=== PATIENT | female | born 1955 | race Caucasian/White ===

== ENCOUNTER 2019-04-23 03:19 | Observation (INO) ==
[2019-04-23] MEDS ORDERED: PHENERGAN IM ONE (05:35)
[2019-04-23] MEDS ORDERED: PHENERGAN IV ONE (05:44)
[2019-04-23] MEDS ORDERED: SODIUM CHLORIDE 0.9% INJ ONE ×2 (05:44→07:08)
[2019-04-23 06:32] LABS: BASO# 0.02 X1000 (0.0-0.2); BASO% 0.3 % (0.0-0.8); EOS# 0.29 X1000 (0.0-0.7); EOS% 4.2 % (0.0-10.0); HEMATOCRIT 41.7 % (37.0-47.0); HEMOGLOBIN 14.5 g/dL (12.0-16.0); IMM GRAN# 0.01 X1000 (0.0-0.04); IMM GRAN% 0.1 % (0.0-0.5); LYMPH# 1.63 X1000 (1.2-3.4); LYMPH% 23.7 % (20.5-51.1); MCH 27.1 PG (27-31); MCHC 34.8 g/dL (33-37); MCV 77.9 FL (81-99); MONO# 0.78 X1000 (0.11-0.59); MONO% 11.3 % (1.7-9.3); MPV 11.9 FL (7.4-10.4); NEUT# 4.16 X1000 (1.4-6.5); NEUT% 60.4 % (42.2-75.2); PLT 192 X1000 (130-400); RBC 5.35 XMIL (4.2-5.4); RDW 13.9 % (11.5-14.5); WBC 6.89 X1000 (4.8-10.8)
[2019-04-23 06:43] LABS: ALBUMIN 4.4 g/dL (3.5-5.0); CALCIUM 9.2 mg/dL (8.8-10.2); CREATININE 1.1 mg/dL (0.5-0.9); POTASSIUM 3.8 mmol/L (3.5-5.1); TOTAL BILIRUBIN 1.3 mg/dL (0.20-1.00); TOTAL PROTEIN 7.1 g/dL (6.3-8.3)
--- NOTE | 2019-04-23 06:59 | PROVIDER DOCUMENTATION ---
HPI-Abdominal Pain/GI Problem - General Chief Complaint: N/V/D Stated Complaint: N/V/D Time Seen by Provider: 04/23/19 05:35 Allergies/Adverse Reactions: Patient Allergies Allergy/AdvReac Type Severity Reaction Status Date / Time Sulfa (Sulfonamide Allergy VOMITING Verified 04/23/19 03:33 Antibiotics) meperidine [From Demerol] AdvReac VOMITING Verified 04/23/19 03:33 metoclopramide [From Reglan] AdvReac Unknown Verified 04/23/19 03:33 Review of Systems - Adult - REVIEW OF SYSTEMS - ADULT Constitutional: reports: no symptoms reported Eyes: reports: no symptoms reported Ears, Nose, Mouth & Throat: reports: no symptoms reported Cardiovascular: reports: no symptoms reported Respiratory: reports: no symptoms reported Gastrointestinal: reports: abdominal pain, nausea, poor appetite, vomiting Genitourinary: reports: no symptoms reported Musculoskeletal: reports: no symptoms reported, back pain Integumentary: reports: no symptoms reported Neurological: reports: no symptoms reported Psychiatric: reports: no symptoms reported Hematologic/Lymphatic: reports: no symptoms reported Allergic/Immunologic: reports: no symptoms reported Past History - Adult - PAST MEDICAL HISTORY-ADULT Review of Records: reports: Medications Reviewed, Social history reviewed & non- contributory. Major Childhood Illnesses: reports: denies history Cardiovascular: reports: HTN Respiratory: reports: denies history Gastrointestinal: reports: cholelithiasis, diverticulosis Genitourinary: reports: denies history Musculoskeletal: reports: denies history Psychiatric: reports: denies history Endocrine/Immune: reports: denies history - PRIOR SURGERIES/PROCEDURES Surgical/Procedure History: reports: colonoscopy, cholecystectomy - FAMILY HISTORY Family History: reviewed, not pertinent - SOCIAL HISTORY Smoking: denies Substance Use: none/never Alcohol Use Frequency: never Physical Exam-General - PHYSICAL EXAM-ADULT Initial Vital Signs Reviewed: Yes - CONSTITUTIONAL General Appearance: appears well, moderate distress - EYES Eyes: PERRL/EOMI - HEAD, EARS, NOSE, MOUTH & THROAT HENMT: normocephalic/atraumatic, moist mucous membranes - NECK Neck: non-tender, full range of motion, supple - RESPIRATORY Respiratory: chest non-tender, lungs clear, normal breath sounds - CARDIOVASCULAR Cardiovascular: normal peripheral pulses, regular rate, rhythm - GASTROINTESTINAL (ABDOMEN) Abdominal Exam: normal bowel sounds, non tender, soft, tenderness - LYMPHATIC Lymphatic: no adenopathy - MUSCULOSKELETAL Back Exam: normal inspection, no CVA tenderness Extremity: normal range of motion, non-tender - SKIN Integumentary: normal color, normal turgor - NEUROLOGIC Neurologic: heel seam rubber II-XII nml as tested, grossly normal - PSYCHIATRIC Psych/Mental Status: oriented x 3 Progress - PLAN OF CARE/RESULTS Progress/Plan/Lab Results: Vital Signs - 8 hr 04/23/19 03:26 Temperature 98.9 F Pulse Rate 77 Respiratory Rate 16 Blood Pressure 175/95 O2 Sat by Pulse Oximetry 99 Laboratory Results - last 24 hr 04/23/19 04/23/19 04/23/19 05:20 05:20 05:20 WBC 6.89 RBC 5.35 Hgb 14.5 Hct 41.7 MCV 77.9 L MCH 27.1 MCHC 34.8 RDW Std Deviation 13.9 Plt Count 192 MPV 11.9 H Immature Gran % (Auto) 0.1 Neut % (Auto) 60.4 Lymph % (Auto) 23.7 [place] % (Auto) 11.3 H Eos % (Auto) 4.2 Baso % (Auto) 0.3 Immature Gran # (Auto) 0.01 Neut # (Auto) 4.16 Lymph # (Auto) 1.63 [place] # (Auto) 0.78 H Eos # (Auto) 0.29 Baso # (Auto) 0.02 Sodium 139 Potassium 3.8 Chloride 102 Carbon Dioxide 27 Anion Gap 10 BUN 12 Creatinine 1.1 H Estimated GFR/1.73 m2 50 BUN/Creatinine Ratio 11 Glucose 107 H Calculated Osmolality 278 Calcium 9.2 Total Bilirubin 1.30 H AST 84 H ALT 96 H Alkaline Phosphatase 162 H Total Protein 7.1 Albumin 4.4 Globulin 3.0 Albumin/Globulin Ratio 2.0 Amylase 32 Lipase 25 Orders Category Date Time Status ABDOMEN FLAT/UPRIGHT [RAD] Stat Exams 04/23/19 06:50 Ordered CHEST-2 VIEWS [RAD] Stat Exams 04/23/19 06:50 Ordered AMYLASE [CHEM] Stat Lab 04/23/19 05:20 Completed CBC WITH ELECTRONIC DIFF [HEME] Stat Lab 04/23/19 05:20 Completed COMPREHENSIVE METABOLIC PANEL [CHEM] Stat Lab 04/23/19 05:20 Completed LIPASE [CHEM] Stat Lab 04/23/19 05:20 Completed Promethazine [Phenergan] Med 04/23/19 05:44 Discontinued 25 mg IV NOW ONE Sodium Chloride 0.9% Med 04/23/19 05:44 Discontinued 10 ml INJ NOW ONE Result Diagrams: 04/23/19 05:20 04/23/19 05:20 - REASSESSMENT Reassessment #1 Time Reassessed: 08:06 Status: unchanged (again with nausea/vomitng small amount. X-ray consistent with ileus. admission discussed with dr Vaca.-[facility]) - CONSULTS/PCP/HOSPITALIST Notification #1 *Consult/PCP/Hospitalist*: DR VACA Time Discussed: 08:08 Consult Disposition: Will see in ED, Admit Departure - Departure Date of Disposition Decision: 04/23/19 Time of Disposition Decision: 08:08 DIAGNOSIS: Gastroenteritis, Ileus, Elevated liver enzymes Disposition: ADMITTED INPATIENT 09 Certified Medical Emergency: Emergent Condition: Stable Referrals and Follow-Ups: Winter Gannon MD [Primary Care Provider] - - Critical Care Note This patient required my direct & personal management of CC.: No Attestation - Physician/ DASIA Attestation Patient care was provided by Advanced Practice Provider:: No The physician spent face to face time with patient:: Yes Advanced Practice Provider documentation review:: Supervising physician onsite and consulted in the evaluation and care of this patient. The physician did have a face to face encounter with the patient.
[2019-04-23] MEDS ORDERED: BENTYL LIQUID PO ONE (07:08)
[2019-04-23] MEDS ORDERED: PROTONIX IV ONE (07:08)
[2019-04-23] MEDS ORDERED: NS 500 ML IV ONE (07:08)
--- NOTE | 2019-04-23 07:41 | Diag Imaging Result Doc PS360 ---
EXAM: CHEST-2 VIEWS HISTORY: cough TECHNIQUE: Chest two views COMPARISON: None. FINDINGS: The lungs are well expanded. The heart is not enlarged. The vessels are not distended. There are no infiltrates. No pleural effusions. IMPRESSION: No pneumonia. Electronically signed by Carl Garcia 04/23/2019 7:38 AM
--- NOTE | 2019-04-23 07:42 | Diag Imaging Result Doc PS360 ---
EXAM: ABDOMEN FLAT/UPRIGHT HISTORY: nausea diarrhea TECHNIQUE: Flat and upright, two views COMPARISON: None. FINDINGS: No free air beneath the diaphragm. The gallbladder has been removed. Air-fluid levels in the right abdomen in nondistended bowel loops. No organomegaly. No abnormal abdominal calcifications. IMPRESSION: There is likely an ileus. Follow-up films recommended. Electronically signed by Carl Garcia 04/23/2019 7:39 AM
[2019-04-23] MEDS ORDERED: ZOFRAN IV PRN (08:28)
[2019-04-23] MEDS ORDERED: TYLENOL PO PRN (08:28)
[2019-04-23] MEDS ORDERED: DEMEROL IV PRN (10:45)
[2019-04-23] MEDS ORDERED: PHENERGAN IV PRN (10:45)
[2019-04-23] MEDS ORDERED: SODIUM CHLORIDE 0.9% INJ PRN (10:45)
[2019-04-23] MEDS: NS 1,000 ML IV SCH ×2 (10:47→21:31)
[2019-04-23] MEDS ORDERED: MORPHINE IV PRN (10:51)
--- NOTE | 2019-04-23 11:10 | HISTORY AND PHYSICAL ---
PRIMARY CARE PHYSICIAN: Dr. Gannon. CHIEF COMPLAINT: Nausea, vomiting, and diarrhea that has been present since last Saturday, now with sharp abdominal pain that is diffuse. HISTORY OF PRESENTING ILLNESS: This is a 63-year-old female who presents to [facility] ER with complaints of nausea, vomiting, and diarrhea that have been present since last Saturday. States she has had no appetite for the last couple of days. Began having sharp abdominal pain, so she presented to the emergency room. Her workup showed a total bilirubin of 1.30, an AST of 84, ALT 96, alkaline phosphatase 162. We did an abdominal x-ray that showed likely an ileus, with followup films recommended. Her chest x-ray showed no pneumonia, so she was admitted for further evaluation and treatment. PAST MEDICAL HISTORY: Hypertension, sleep apnea with CPAP usage. PAST SURGICAL HISTORY: Cholecystectomy, hysterectomy, back surgery, right leg melchor placement, pituitary tumor removal, and a sinus surgery. FAMILY HISTORY: Reviewed and noncontributory. SOCIAL HISTORY: She currently lives with family. Denies any tobacco, alcohol, or illicit drug use. ALLERGIES: Sulfa, meperidine, and metoclopramide. HOME MEDICATIONS: She takes bupropion 200 mg p.o. daily, Coreg 12.5 mg p.o. b.i.d., lisinopril 10 mg p.o. daily, lorazepam 0.5 mg p.o. at bedtime, AcipHex 20 mg p.o. daily, and zolpidem 5 mg p.o. at bedtime. IMAGING AND LABORATORY DATA: Laboratory data showed a white blood cell count of 6.89, hemoglobin 14.5, hematocrit 41.7, platelets 192,000. Sodium 139, potassium 3.8, chloride 102, CO2 of 27, BUN of 12, creatinine 1.1, glucose 107. Total bilirubin of 1.30, AST of 84, ALT 96, alkaline phosphatase of 162, amylase of 32, lipase of 25. Abdominal x-ray showed that there is likely an ileus, with followup films recommended, and chest x-ray showed no pneumonia. REVIEW OF SYSTEMS: She denied any fever, chills, blurred vision, dizziness, chest pain, coughing, shortness of breath. She was positive for generalized abdominal pain with nausea, vomiting, and diarrhea. Denied any burning or hurting with urination. PHYSICAL EXAMINATION: VITAL SIGNS: On arrival, she had a temperature of 98.9 degrees, pulse 77, respirations 16, blood pressure 175/95, saturating 99% on room air. GENERAL: This is a 63-year-old female who is lying in the bed and answers questions appropriately. HEENT: Normocephalic, atraumatic. Normal ENT inspection. Oropharynx and nares are clear. Eyes: Pupils are equal, round, and reactive to light and accommodation. Extraocular movements are intact. NECK: Normal inspection. Normal range of motion. LUNGS: Clear to auscultation bilaterally with equal lung expansion and chest wall movement. HEART: Regular rate and rhythm. No murmurs, rubs, or gallops. ABDOMEN: Soft. There was some mild tenderness to palpation throughout her abdomen. Bowel sounds are present x4 quadrants. MUSCULOSKELETAL: She has 5/5 strength x4 extremities. NEUROLOGICAL: Cranial nerves II through XII appear grossly intact. ASSESSMENT: 1. Ileus. 2. Gastroenteritis. 3. Elevated liver function tests. 4. Hypertension, history of. PLAN: She was admitted to the medical unit. Placed on telemetry, full liquid diet. Will check a Clostridium difficile stool. Placed on normal saline at 75 mL an hour. The patient states the Zofran is not helping her nausea, so will change her to Phenergan 25 mg IV every 4 hours p.r.n. I will give her morphine 2 mg IV every 4 hours p.r.n. She is allergic to Demerol. Will begin her home medications tonight, and will recheck a CBC, CMP, and a magnesium level in the a.m. Further orders after seen by attending. Dictated by ANTOINETTE Jaquez for Yossi Vaca MD cc: ANTOINETTE Jaquez MD Kathy J. Sparacino, MD
[2019-04-23] MEDS ORDERED: PNEUMOVAX 23 IM ONE (12:51)
[2019-04-23 17:48] LABS: CLARITY CLEAR (CLEAR); COLOR YELLOW
[2019-04-23 17:49] LABS: BILIRUBIN URINE NEGATIVE (NEGATIVE); BLOOD URINE NEGATIVE (NEGATIVE); GLUCOSE URINE NEGATIVE (NEGATIVE); KETONE URINE NEGATIVE (NEGATIVE); LEUKOCYTES URINE 1+ (NEGATIVE); NITRITE URINE NEGATIVE (NEGATIVE); PROTEIN URINE NEGATIVE (NEGATIVE); SP GRAVITY URINE 1.005; UROBILINOGEN URINE 1 mg/dL
[2019-04-23 17:50] LABS: URINE EPITHELIAL CELLS <10 /HPF (<10); URINE RBC <10 /HPF (<10)
[2019-04-23 17:51] LABS: URINE BACTERIA 1+ /HFP; URINE SOURCE CLEAN CATCH; URINE YEAST PRESENT /HPF
[2019-04-23] MEDS ORDERED: IMODIUM PO ONE (18:50)
--- NOTE | 2019-04-23 18:53 | HISTORY AND PHYSICAL ---
ADDENDUM: Patient admitted to the hospital for nausea, vomiting, diarrhea. Thankfully her C. difficile so far has been negative. We are going to admit her to the hospital. IV fluids, try to control her diarrhea, follow her blood pressures. She does have an elevated bilirubin at 1.3. We will continue to follow. cc: Yossi Vaca MD
[2019-04-23] MEDS ORDERED: ATIVAN PO SCH (21:00)
[2019-04-23] MEDS ORDERED: AMBIEN PO SCH (21:00)
[2019-04-23] MEDS: COREG PO SCH ×2 (21:30→21:31)
[2019-04-23] MEDS: IMODIUM PO PRN (21:31)
[2019-04-24] MEDS: IMODIUM PO PRN ×2 (01:31→15:46)
[2019-04-24 06:38] LABS: HEMATOCRIT 39.7 % (37.0-47.0); HEMOGLOBIN 13.4 g/dL (12.0-16.0); MCH 26.5 PG (27-31); MCHC 33.8 g/dL (33-37); MCV 78.6 FL (81-99); MPV 11.5 FL (7.4-10.4); RBC 5.05 XMIL (4.2-5.4); RDW 14.3 % (11.5-14.5); WBC 7.84 X1000 (4.8-10.8)
[2019-04-24] MEDS ORDERED: PRILOSEC PO SCH (07:00)
[2019-04-24 07:01] LABS: AGAP 12; ALBUMIN 3.8 g/dL (3.5-5.0); ALKALINE PHOSPHATASE 139 U/L (32-104); BUN 10 mg/dL (8-22); CALCIUM 8.6 mg/dL (8.8-10.2); CHLORIDE 107 mmol/L (98-107); COSMO 280; CREATININE 0.9 mg/dL (0.5-0.9); ESTIMATED GFR > 60; GLUCOSE 94 mg/dL (70-104); GOT 47 U/L (10-30); GPT 74 U/L (10-36); MAGNESIUM 1.8 mg/dL (1.5-2.7); POTASSIUM 3.4 mmol/L (3.5-5.1); SODIUM 141 mmol/L (136-145); TCO2 22 mmol/L (25-35); TOTAL PROTEIN 6.3 g/dL (6.3-8.3)
[2019-04-24 07:38] VITALS: BP 129/72
[2019-04-24] MEDS ORDERED: WELLBUTRIN PO SCH (09:00)
[2019-04-24] MEDS ORDERED: PRINIVIL PO SCH (09:00)
[2019-04-24] MEDS: COREG PO SCH (09:16)
[2019-04-24] MEDS ORDERED: AMBIEN PO SCH (09:54)
--- NOTE | 2019-04-24 14:07 | Diag Imaging Result Doc PS360 ---
EXAM: CT ABD/PELVIS W/PO AND IV CON HISTORY: ileus,gastroenteritis TECHNIQUE: CT abdomen and pelvis with oral and intravenous contrast COMPARISON: None. FINDINGS: The gallbladder has been removed. There is fatty infiltration of the liver. Normal spleen, pancreas, and adrenal glands. There is scarring to the kidneys. No hydronephrosis. No aortic aneurysm. Moderate atherosclerosis. No bowel obstruction or ileus. There are scattered colonic diverticula. No inflammation about the appendix. No abscess. No ascites. Urinary bladder is moderately distended. The uterus has been removed. No pelvic mass. IMPRESSION: 1.Cholecystectomy 2.There is fatty infiltration of the liver 3.Renal scarring 4.Colonic diverticulosis 5.Hysterectomy This exam was performed using automated exposure control, adjustment of mA or kV according to patient size, and/or use of iterative reconstruction technique. Electronically signed by Carl Garcia 04/24/2019 2:06 PM
--- NOTE | 2019-04-24 14:18 | Diag Imaging Result Doc PS360 ---
EXAM: ABDOMEN FLAT/UPRIGHT HISTORY: ileus TECHNIQUE: Flat and upright, two views COMPARISON: 04/23/2019 FINDINGS: No free air beneath the diaphragm. The gallbladder has been removed. Intravenous contrast fills the ureters and urinary bladder. Air and fluid fill nondistended loops of small bowel and colon. IMPRESSION: No definite abnormality Electronically signed by Carl Garcia 04/24/2019 2:17 PM
[2019-04-24] MEDS: NS 1,000 ML IV SCH (15:35)
--- NOTE | 2019-04-25 02:58 | DISCHARGE SUMMARY ---
ADMISSION DATE: 04/23/2019 DISCHARGE DATE: 04/24/2019 ADDENDUM: Patient seen and examined by myself. Full note dictated and discussed with nurse practitioner. On discharge, patient is awake, alert. She tolerated a GI soft diet. She is still having some mild diffuse abdominal pain but overall is improved. We will discharge her home. She will follow up outpatient as needed. cc: Yossi Vaca MD
--- NOTE | 2019-04-25 18:49 | DISCHARGE SUMMARY ---
ADMISSION DATE: 04/23/2019 DISCHARGE DATE: 04/24/2019 PRIMARY CARE PHYSICIAN: Dr. Gannon. ADMISSION DIAGNOSES: 1. Ileus. 2. Gastroenteritis. 3. Elevated liver function tests. 4. Hypertension, history of. DISCHARGE DIAGNOSES: 1. Ileus, resolved. 2. Gastroenteritis, improved. 3. Elevated liver function tests, improved. 4. Hypertension, history of. SUMMARY OF FINDINGS: This is a 63-year-old female who presented to the ER with complaints of nausea, vomiting, and diarrhea that had been present since last Saturday with no appetite over the last 2 days prior to coming in. She began having sharp abdominal pain, so she presented to the ER. We did an abdomen x-ray that showed likely an ileus. Chest x-ray showed no pneumonia. She did have a bump in her LFTs with an AST of 84, ALT 96, alkaline phosphatase 162, bilirubin total 1.30. She was admitted and placed on a full liquid diet, normal saline at 75 mL an hour, Phenergan 25 mg IV q. 4 hours p.r.n., and Zofran was ineffective. She was allergic to Demerol, so we gave her morphine 2 mg IV q. 4 hours p.r.n. She was much improved today. We repeated her abdomen x-ray that showed no definite abnormality. We did a CT of the abdomen and pelvis that showed her cholecystectomy and a fatty infiltration of the liver. She was tolerating a GI soft diet. No further nausea, vomiting, or diarrhea. So it was felt that she could safely be discharged home. DISCHARGE MEDICATIONS: She will continue her home medications of bupropion 200 mg p.o. daily, Coreg 12.5 mg p.o. b.i.d., lisinopril 10 mg p.o. daily, lorazepam 0.5 mg p.o. at bedtime, AcipHex 20 mg p.o. daily, and zolpidem 5 mg p.o. at bedtime and we gave her a prescription for Zofran 4 mg p.o. q. 6 hours p.r.n. #15 with no refills. FOLLOWUP: She will need to follow with her primary care physician in the next 1 to 2 weeks and call their office for an appointment. All discharge instructions have been reviewed with the patient and she verbalized understanding. TIME SPENT: This is a 35-minute discharge. Dictated by ANTOINETTE Jaquez for Yossi Vaca MD cc: ANTOINETTE Jaquez MD Kathy J. Sparacino, MD
== END 2019-04-24 16:29 | disposition home or self-care (01) ==
LOC: P.ED 03:19 → OPS 08:26 → DIRADM 08:26 → P.MEDSURG 09:49
PROVIDERS: ADMIT Family Medicine; ATTEND Family Medicine